=== PATIENT | female | born 1935 | race Caucasian/White ===

== ENCOUNTER → 2017-02-10 | Outpatient (CLI) | payer MEDICARE, BC ==
--- NOTE | ~2017-02-10 | MY11 ---
[facility] A Service of [facility] RADIOLOGY TEXT RESULTS PATIENT: IBETH HAINES LOCATION: [facility] : 39 UNIT #: [id number] AGE: [address]: Phuong Rehman APRN SEX: F ORDER DR: [id number] [facility] [address] [place], [place] [address] [id number] O MR#: [id number] Acc #: [id number] NAME: IBETH HAINES : 1935 SEX: F STUDY DATE/TIME: 02/10/2017 10:55 UNIT: [facility] ROOM: STUDY DESCRIPTION: MY Mammogram Screening Dig Will Attending Physician: Phuong Rehman A.P.R.N. Ordering Physician: Phuong Rehman A.P.R.N. Primary Care Physician: Phuong Rehman A.P.R.N. MEDICAL IMAGING REPORT This report is preliminary unless electronic signature is present EXAM Digital screening mammograms 02/10/2017, [facility] HISTORY 81-year-old woman, no risk elevation. Annual screen. COMPARISON Mammograms date to 06/21/2007 with most recent 01/20/2016 Digital imaging of each breast was completed utilizing a two-view examination of each breast in craniocaudal and mediolateral-oblique projections. Review and interpretation of digital mammograms include a second review in conjunction with FDA-approved CAD device. There is a normal parenchymal presentation bilaterally consistent with the patient's age. There are no breast masses imaged and no parenchymal asymmetry is visualized. There are no suspicious microcalcifications and I see no focal architectural disturbance. IMPRESSION Negative screening digital mammogram. One-year followup recommended. Patients over the age of 40 are entered into a reminder system with target due date for the next mammogram. A result letter will also be sent to the patient. BIRADS: 1 Negative Dictated by... Zain Calix M.D. THIS IS AN ELECTRONICALLY VERIFIED REPORT [facility] A Service of [facility] RADIOLOGY TEXT RESULTS PATIENT: IBETH HAINES LOCATION: [facility] : 39 UNIT #: [id number] AGE: [address]: Phuong Rehman APRN SEX: F ORDER DR: Zain Calix M.D. at 02/10/2017 1:59 PM SAJANB/jessica TD: 02/10/2017 12:31 JOB #: [id number] MEDICAL IMAGING REPORT Page 1 of 1 COPY
== END | disposition home or self-care (01) ==
LOC: CWCC 10:25
DX: Z12.31 Encounter for screening mammogram for malignant neoplasm of breast (principal)
CPT/HCPCS: G0202